=== PATIENT | female | born 1925 | race Caucasian/White ===

== ENCOUNTER 2017-02-18 15:30 | Emergency (ER) | payer MEDICARE, BC ==
--- NOTE | 2017-04-13 22:23 | ER ---
ADMIT: 02/18/2017 RM/LOC: ER [facility] MR#: [id number] [address] [place] [id number] EMILY GUPTA [address] [place] [address] Emergency Room Report SEX: F AGE: 89 : 1925 DATE: 02/18/2017 ADDENDUM: This patient comes into the ER because there is some redness on her right lower leg. It was noticed today she denies any injury and is slightly tender. She was seen at the urgent care. They did a D-dimer on her leg and saw that it was 470. So they sent her to our emergency room with concerns of a DVT. ALLERGIES: NONE. MEDICATIONS: None. PAST MEDICAL HISTORY: Includes hypertension, osteoporosis, hysterectomy, appendectomy, and tonsillitis. MEDICATIONS: See list. ALLERGIES: NONE. SOCIAL HISTORY: She is a nonsmoker. REVIEW OF SYSTEMS: CONSTITUTIONAL: She denies any fevers. RESPIRATORY: Cough. GI: No vomiting or diarrhea. She denies any difficulty breathing. All rest review of systems are negative. PHYSICAL EXAMINATION: GENERAL: This is an alert 89-year-old white female. VITAL SIGNS: Temperature is 98.5, pulse 72, respirations 16, and blood pressure is 199/78. HEENT: Eyes, clear. Head, normocephalic. TMs, intact with normal light reflex. Posterior pharynx is benign. Oral mucosa is moist. Nares are clear. HEART: Regular rhythm. LUNGS: Clear to auscultation. I palpated throughout her chest, did not elicit any pain. ABDOMEN: Soft. ADMIT: 02/18/2017 RM/LOC: ER [facility] MR#: [id number] [address] [place] [id number] EMILY GUPTA [address] [place] [address] Emergency Room Report SEX: F AGE: 89 : 1925 EXTREMITIES: Her lower extremities, she does have a cellulitis on the front of her right lower leg. There is no pain in her calf and no pain in her upper leg, however the gonzalez is quite red and edematous. Venous Doppler was negative for any DVTs. I did consult with Dr. Everett concerning treatment of this patient. He also examined the patient. We did discuss elevated D-dimer, that was done at the urgent care, and her having no shortness of breath and really no pain in her calf or difficulty breathing. We felt it was appropriate to not do a CTA of her chest. I did write a prescription for Keflex 500 mg q.i.d. and she is to follow up with Dr. Cardoza in the next few days if it is getting worse. Return to the ER if any difficulty breathing. Please see my T-sheet. ELVIS Cheema / Mike Everett MD / francis JOB #: [id number] CC: Mike Everett MD, Attending Physician Pio Cardoza MD, Family Physician
== END 2017-02-18 16:40 | disposition home or self-care (01) ==
LOC: ER 15:30
DX: L03.115 Cellulitis of right lower limb (principal)